=== PATIENT | female | born 1945 | race Caucasian/White ===

== ENCOUNTER 2019-03-04 03:52 | Outpatient (CLI) | payer MEDICARE, BC ==
[~2019-03-04 03:52] MED LIST: CEPH-571 PO; NEO/5DRO3 LEFTEYE
== END 2019-03-04 23:59 | disposition home or self-care (01) ==
LOC: RT 03:52
PROVIDERS: ATTEND Internal Medicine Critical Care Medicine
DX: J45.998 Other asthma (principal); G47.30 Sleep apnea, unspecified
CPT/HCPCS: 94618

== ENCOUNTER 2023-01-31 09:33 | Day surgery (SDC) | payer MEDICARE, BC ==
[~2023-01-31] VITALS: Ht 157.5 cm; Wt 78.2 kg
[~2023-01-31 09:33] MED LIST changes: +ALLO300T8 PO; +ATOR20TA66 PO; -CEPH-571 PO; +DULO60CA65 PO; +GABA600T13 PO; +HYDR200T73 PO; +MYCO500T PO; -NEO/5DRO3 LEFTEYE; +OXYB15TA19 PO; +PANT40TA54 PO; +PRE5T PO; +PROP225C9 PO; +clindamycin-Cleocin 900mg/D5W 50 ML IV ONE; +famotidine 20mg tablet PO ONE; +ringers solution, lacted 1,000 ML IV SCH
[2023-01-31] MEDS ORDERED: morphine 4 MG/ML inj SYRINge IV PRN (10:45)
[2023-01-31] MEDS ORDERED: morphine 2 MG/ML inj. syringe IV PRN (10:45)
[2023-01-31] MEDS ORDERED: ringers solution, lacted 1,000 ML IV SCH (10:45)
[2023-01-31] MEDS ORDERED: enalaprilat dihydrate 2.5mg/2ml vial IV PRN (10:45)
[2023-01-31] MEDS ORDERED: labetalol 20mg/4ml (5mg/ml) syringe IV PRN (10:45)
[2023-01-31] MEDS ORDERED: proCHLORperazine 10 MG/2 ml inj IV PRN (10:45)
[2023-01-31] MEDS ORDERED: ondansetron/PF 4mg/2ml inj IV PRN (10:45)
[2023-01-31] MEDS ORDERED: meperidine/PF 25mg/ml syringe IV PRN ×3 (10:45)
[2023-01-31 11:53] LABS: ALBUMIN 3.3 G/DL (3.4-5.0); ALBUMIN/GLOBULIN RATIO 1.1 (1.1-1.5); ALKALINE PHOSPHATASE 79 IU/L (46-116); BASOPHILS # (AUTO) 0.1 X10'3 (0-0.2); BASOPHILS % (AUTO) 1.4 % (0-1); BLOOD UREA NITROGEN 7 MG/DL (7-18); BUN/CREATININE RATIO 10.4 (10.0-20.0); CALCIUM 8.5 MG/DL (8.5-10.1); CHLORIDE 102 MMOL/L (99-107); CREATININE 0.67 MG/DL (0.40-0.90); EOSINOPHILS # (AUTO) 0.4 X10'3 (0-0.9); EOSINOPHILS % (AUTO) 7.4 % (0-6); LYMPHOCYTES # (AUTO) 1.8 X10'3 (1.1-4.8); LYMPHOCYTES % (AUTO) 31.7 % (21-51); MEAN CORPUSCULAR HEMOGLOBIN 32.1 PG (27.0-31.0); MEAN CORPUSCULAR HGB CONC 33.5 g/dL (33.0-36.5); MEAN CORPUSCULAR VOLUME 95.8 FL (78-98); MONOCYTES # (AUTO) 0.7 X10'3 (0-0.9); MONOCYTES % (AUTO) 11.7 % (2-12); NEUTROPHILS # (AUTO) 2.7 X10'3 (1.8-7.7); NEUTROPHILS % (AUTO) 47.8 % (42-75); PRE OP ALT 13 U/L (30-65); PRE OP ANION GAP 9 (8-16); PRE OP AST 22 U/L (10-37); PRE OP BILIRUB, TOTAL 0.6 MG/DL (0.0-1.0); PRE OP GLUCOSE 90 MG/DL (70-104); PRE OP PLATELET COUNT 267 X10'3 (140-440); PRE OP SODIUM 140 MMOL/L (135-145); PRE OP WHITE BLOOD COUNT 5.7 10'3 (4.8-10.8); RED BLOOD COUNT 3.44 X10'6 (4.20-5.60); RED CELL DISTRIBUTION WIDTH 17.1 % (11.5-14.5); TOTAL PROTEIN 6.3 G/DL (6.4-8.2); eCRCL 57 ML/MIN; eGFR 86 ML/MIN
[2023-01-31 11:58] VITALS: BP 158/72; PULSE 89; RESP 14; RESP 16; TEMP 97.7; O2SAT 97
[2023-01-31 12:00] LABS: PRE OP POTASSIUM 3.3 MMOL/L (3.4-5.1)
[2023-01-31 12:02] LABS: BILIRUBIN,URINE NEGATIVE (Neg); CLARITY,URINE CLOUDY (Clear); COLOR,URINE YELLOW (Yellow); GLUCOSE, URINE NEGATIVE (Neg); KETONES,URINE NEGATIVE (Neg); LEUKOCYTE ESTERASE ,URINE LARGE (Neg); NITRITES, URINE POSITIVE (Neg); OCCULT BLOOD,URINE SMALL (Neg); PH,URINE 6.5 (4.8-8.0); PROTEIN,URINE 100 mg/dl (Neg); UROBILINOGEN,URINE 0.2 E.U/dL (0.2-1.0)
[2023-01-31 12:10] LABS: UA COLLECTION TYPE CLN CATCH MIDSTREAM
[2023-01-31 12:12] VITALS: RESP 16; O2SAT 89
[2023-01-31 12:21] LABS: BACTERIA,URINE 4+ /HPF (Neg); WBC CLUMPS,URINE MANY /HPF (NEGATIVE); WBC,URINE TNTC /HPF (0-4)
[2023-01-31 12:22] LABS: RBC,URINE 0-2 /HPF (0-2); SQUAMOUS EPITHELIAL CELL,UR NONE SEEN /LPF (FEW)
[2023-01-31] MEDS ORDERED: LIDOcaine 1% W/epiNEPHrine 1:200,000 10ml vial IJ ONE (13:00)
[2023-01-31] MEDS ORDERED: BUPIVAcaine/PF 2.5mg/ml (0.25%) 10ml vial IJ ONE (13:00)
[2023-01-31] MEDS ORDERED: LIDOCAINE 1%/EPI 1:100,000 inj. 10 ML multi-dose vial ONE (13:12)
[2023-01-31] MEDS ORDERED: BUPIVAcaine/PF 2.5mg/ml (0.25%) 10ml vial ONE (13:13)
[2023-01-31] MEDS ORDERED: fentaNYL/PF 50MCG/1 ML 2ML syringe ONE (13:51)
[2023-01-31] MEDS ORDERED: midazolam 1 mg/ML 2ml injection ONE (13:51)
[2023-01-31] MEDS ORDERED: LIDOcaine 1%/PF 5ML 10 MG/ML VIAL ONE (14:23)
[2023-01-31 14:40] VITALS: BP 115/57; PULSE 66; RESP 16; O2SAT 95
--- NOTE | 2023-01-31 14:40 | NUR ---
Received from OR via , accompanied by Anesthesiologist and report given by Anesthesiolgist. PATIENT A&OX4, DENIES PAIN, V/S WNL, SCD ON , PIV 20G LUE, LEFT HEAD INC DERMABONDED CLOSED
[2023-01-31 14:50] VITALS: BP 123/74; PULSE 89; RESP 15; O2SAT 95
[2023-01-31 15:00] VITALS: BP 119/78; PULSE 87; RESP 14; O2SAT 96
[2023-01-31 15:10] VITALS: BP 121/73; PULSE 81; RESP 13; O2SAT 97
--- NOTE | 2023-01-31 15:10 | NUR ---
PATIENT A&OX4, DENIES PAIN, V/S WNL, SCD OFF , PIV 20G LUE D/C, LEFT HEAD INC DERMABONDED CLOSED CDI. I HAVE REVIEWED D/C INSTRUCTIONS WITH PATIENT AND THEY HAVE VERBALIZED UNDERSTANDING. PATIENT D/C HOME WITH ALL BELONGINGS AND FAMILY GAVE TRANSPORT.
[2023-01-31 16:41] LABS: ANISOCYTOSIS 1+; PLATELET ESTIMATE NORMAL
[2023-01-31 16:42] LABS: HYPOCHROMASIA 1+
== END 2023-01-31 15:10 | disposition home or self-care (01) ==
LOC: PAS 09:33
PROVIDERS: ATTEND Surgery
DX: G44.89 Other headache syndrome (principal); E78.5 Hyperlipidemia, unspecified; F41.9 Anxiety disorder, unspecified; M35.00 Sjogren syndrome, unspecified; K21.9 Gastro-esophageal reflux disease without esophagitis; M10.9 Gout, unspecified; M33.20 Polymyositis, organ involvement unspecified; Z90.710 Acquired absence of both cervix and uterus; Z98.890 Other specified postprocedural states; Z79.899 Other long term (current) drug therapy; Z86.16 Personal history of COVID-19; Z88.1 Allergy status to other antibiotic agents; Z88.8 Allergy status to other drugs, medicaments and biological substances
CPT/HCPCS: 36415; 37609; 80053; 81001; 82948; 85025; 87077; 87088; 87186; 93005; J2250; J3010; J3490; J7120; Z7506; Z7512; 85008; 88305; 88313; A4215; A4618; A6258; A6449; A7000

== ENCOUNTER 2024-11-14 08:25 | Outpatient (CLI) | payer MEDICARE, BC ==
[~2024-11-14 08:25] MED LIST changes: +GABA-1405 PO; -GABA600T13 PO; +PROP225C24 PO; -PROP225C9 PO; -clindamycin-Cleocin 900mg/D5W 50 ML IV ONE; -famotidine 20mg tablet PO ONE; -ringers solution, lacted 1,000 ML IV SCH
--- NOTE | 2024-11-14 20:46 | CONSULTATION ---
DATE OF CONSULTATION: 11/14/2024 DICTATING PHYSICIAN: Yennifer Otoole M.S., [facility] MODIFIED BARIUM SWALLOW STUDY REPORT REFERRING PHYSICIAN: Graham Fam HISTORY OF PRESENT ILLNESS: The patient is a 79-year-old female and consents to this evaluation. History was obtained from the patient and medical records. The patient reports symptoms of dysphagia, including that feeling as if food is stuck in her chest. She reports that she feels it on the left side of her throat and that when she swallows, it does not want to go down, and so she has to use water to push the food down through her throat. She notes that occasionally food or liquid will get in her airway, but it does not occur on a daily basis. She has reported that she avoids certain food items such as meat due to her difficulty with swallowing them. The patient does have a diagnosis of Sjogren's syndrome and polymyositis, both diagnosed in 2009, and she has had oral dryness due to these diagnoses. She carries water with her throughout the day and utilizes Biot[employer] products, but she feels as if this impacts her ability to swallow. The patient recently had all her teeth removed. This was approximately a month ago and she has had her dentures for about one week at this time, so she does note difficulty with mastication due to recently losing her teeth and becoming adjusted to her dentures. The patient also reports that she has a history of neck fracture in three different spots. CURRENT DIET: In terms of caffeine, the patient has one cup of coffee a day and then she will drink decaf green tea as well. She does not utilize tobacco products. She drinks one glass of wine a day before dinner. She consumes chocolate in spurts, so she will have it on a daily basis if it is in the house, but she will not have it if it is not there and she has not had it recently due to her difficulty with mastication. In terms of dairy products, lately she has been having more ice cream and pudding just due to that difficulty with mastication. Currently, her diet has been different than it has in the past just due to the changes in her teeth and so she has been having more pudding, jello and applesauce. The patient reports that she has been utilizing compensatory strategies such as having small amounts of food at a time. MEDICATIONS: Chlorhexidine gluconate 12% mouthwash once daily, onyansetron 4 mg, Synthroid 0.75 mg once daily orally, Eliquis 30 mg twice daily orally, muabenon 25 mg extended release once daily orally, Myrbetriq, eszopiclone 2 mg, allopurinol 300 mg once daily orally, Mirabegron extended release 25 mg once daily orally, Premarin 0.625 mg one tablet twice vaginally, amiodarone 100 mg once daily orally, CellCept 500 mg two tablets b.i.d., ciprofloxacin HCL 250 one tablet once daily orally, duloxetine HCL [address], gabapentin 600 mg one tablet q.i.d., hydroxychloroquine sulfate 200 mg once daily orally, levothyroxine 50 mcg once daily orally, Lipitor 20 mg once daily orally. PARAMETERS: The patient is seated in a lateral 90-degree view and administered the usual protocol of thin and nectar thick liquids, puree and solid consistencies as well as self-regulated boluses of thin liquids from a cup. RESULTS: In the oral stage of the swallow, lingual strength was noted to be moderately reduced. The patient utilized a lingual pumping motion in order to propel the bolus from the anterior to the posterior oral cavity and she presented with a slowed mastication for the solid consistency. After the initial swallow, there was a moderate to severe oral residue and the patient spontaneously completed second and third swallows as needed. In the pharyngeal stage of the swallow, tongue base retraction was moderately reduced. Swallow initiation was delayed to the level of the piriformis for 1 mL, 3 mL, 5 mL and self-regulated boluses of thin liquids from the cup. Swallow initiation was delayed to the level of the vallecula for 3 mL and 5 mL nectar thick liquid boluses. Delayed swallow initiation can be due to decreased sensation to trigger cranial nerve 9 to initiate the swallow reflex. The patient does have a history of cerebral infarction and so this may be why she presents with delayed swallow initiation. Anterior movement of the posterior pharyngeal wall is observed. Elevation of the hyothyroid complex is accomplished with mild to moderately reduced anterior and superior movement of the hyoid, but full epiglottic inversion. After the tail of the bolus passed, there is a [id number]-yodvpnit pharyngeal residue. PES opening is within functional limits. In terms of airway safety, the patient is noted to demonstrate with penetration for the self-regulated thin liquid bolus from a cup. ANTERIOR, POSTERIOR VIEW: In the AP plane, the bolus split symmetrically between the piriform sinuses and there was no proximal movement of the boluses noted. IMPRESSION: The patient demonstrates with what appears to be a [id number] oropharyngeal stage swallowing disorder characterized by decreased lingual strength, decreased strength of tongue base retraction, delayed swallow initiation to the level of the vallecula for nectar thick liquid boluses and to the level of the pyriform for thin liquid boluses and penetration of the self-regulated bolus of thin liquid from a cup. DIAGNOSES: R13.12, dysphagia, oropharyngeal phase. I63.9, cerebral infarction. PATIENT EDUCATION: Immediately following modified barium swallow study, the patient was able to view the results. The normal anatomy of the swallowing mechanism was revealed. The patient was able to see how the current status of the oromotor and swallowing mechanism decreases her ability to swallow normally. The patient was educated on a recommendation for speech therapy to strengthen the muscles involved in swallowing and indicated that she wanted to think about it before coming to a decision of if she would pursue following therapy. RECOMMENDATIONS: It is recommended that the patient receive swallowing therapy one time weekly for 12 weeks to improve the strength and range of motion of the oral motor and swallowing musculature to ensure airway safety protection and prevent aspiration. LONG-TERM GOALS: The patient will maintain adequate hydration/nutrition with optimum safety and efficiency of swallow function on p.o. intake with overt signs and symptoms of aspiration decreased to once biweekly for the highest possible diet level. PROGNOSIS: Prognosis for the patient is fair to good, dependent upon if the patient decides to participate in swallowing therapy to strengthen the muscles involved in swallowing. FUNCTIONAL ORAL INTAKE: The FOIS was administered to establish and document a change in the functional eating activities of this patient over time. This is a 7-point scale with 1 indicating no oral intake and totally tube dependent and 7 indicating total oral intake with no restrictions. This patient received a 6, which indicates she has a total oral diet with multiple consistencies without special preparation, but with specific food limitations and precautions. G-CODE: [id number]. Thank you very much for asking me to participate in the care of this kind patient. Should you have any questions regarding this evaluation or recommendations, please do not hesitate to contact me at [phone]. During this examination, 5.38 minutes of fluoroscopy time and 27.98 CAK mGy were utilized. Yennifer Otoole M.S., [facility] TID: [id number] RECEIPT: [id number] ANKITA/EDGAR/ MTDD
== END 2024-11-14 23:59 | disposition home or self-care (01) ==
LOC: RAD 08:25
PROVIDERS: ATTEND Internal Medicine Rheumatology
DX: R13.12 Dysphagia, oropharyngeal phase (principal); I63.9 Cerebral infarction, unspecified; R13.10 Dysphagia, unspecified; M33.20 Polymyositis, organ involvement unspecified; M35.00 Sjogren syndrome, unspecified; Z79.01 Long term (current) use of anticoagulants; Z79.890 Hormone replacement therapy; Z79.899 Other long term (current) drug therapy
CPT/HCPCS: 74230